=== PATIENT | female | born 1980 | race Caucasian/White ===

== ENCOUNTER 2025-03-01 23:34 | Emergency (ER) | payer OTHER ==
[~2025-03-01] VITALS: Ht 154.9 cm; Wt 67.3 kg
[2025-03-02] MEDS ORDERED: SUBO8MIS SL (00:27)
[2025-03-02] MEDS ORDERED: AMLO25TA PO (00:27)
[2025-03-02 00:34] LABS: BASO # 0.1 10^3/uL (0.0-0.2); BASO % 0.6 % (0.0-1.0); EOS # 0.1 10^3/uL (0.0-0.5); EOS % 1.8 % (0.0-3.0); LYMPH # 1.6 10^3/uL (1.5-5.0); LYMPH % 20.2 % (24.0-44.0); MONO # 0.5 10^3/uL (0.0-0.8); MONO % 5.9 % (2.0-8.0); NEUTROPHILS # 5.5 10^3/uL (1.5-8.5); NEUTROPHILS % 71.4 % (36.0-66.0); PLATELET COUNT, AUTOMATED 223 10^3/uL (150-450)
[2025-03-02 00:43] LABS: CK-MB VALUE MASS 9.4 NG/ML (<3.6); CPK CREATINE PHOSPHOKINASE 912 U/L (34-145); MB/CK RELATIVE INDEX 1.03 (< OR =4)
[2025-03-02] MEDS: NS (Normal Saline) 0.9% 1,000 ML IV ONE ×2 (01:38→03:20)
[2025-03-02 01:57] LABS: HCG, SERUM QUALITATIVE NEGATIVE (NEGATIVE)
[2025-03-02 02:00] LABS: ETHYL ALCOHOL (ETHANOL) 0.005 % (0.000-0.010)
[2025-03-02 02:01] LABS: SALICYLATE LEVEL < 3.0 MG/DL (<30)
[2025-03-02 02:06] LABS: ALT/SGPT 33 U/L (7.0-40); AST/SGOT 75 U/L (<34); CALCIUM LEVEL 9.2 MG/DL (8.5-10.1); CARBON DIOXIDE LEVEL 22 MMOL/L (20-31); CHLORIDE LEVEL 105 MMOL/L (98-107); CREATININE FOR GFR 0.81 MG/DL (0.55-1.30); GLOMERULAR FILTRATION RATE > 90.0 (>58); POTASSIUM SERUM 6.1 MMOL/L (3.5-5.1); SODIUM LEVEL 140 MMOL/L (136-145)
[2025-03-02 02:12] LABS: AMPHETAMINES LEVEL URINE NEGATIVE (NEGATIVE); BARBITURATES URINE NEGATIVE (NEGATIVE); BENZODIAZEPINES URINE NEGATIVE (NEGATIVE); CANNABINOIDS URINE POSITIVE (NEGATIVE); COCAINE METABOLITE URINE POSITIVE (NEGATIVE); METHADONE URINE NEGATIVE (NEGATIVE); OPIATES URINE NEGATIVE (NEGATIVE); PHENCYCLIDINE URINE NEGATIVE (NEGATIVE)
[2025-03-02 03:07] LABS: CK-MB VALUE MASS 7.6 NG/ML (<3.6); CPK CREATINE PHOSPHOKINASE 838.0 U/L (34-145); MB/CK RELATIVE INDEX 0.9 (< OR =4)
[2025-03-02 04:12] LABS: CK-MB VALUE MASS 7.6 NG/ML (<3.6); CPK CREATINE PHOSPHOKINASE 840.0 U/L (34-145); MB/CK RELATIVE INDEX 0.9 (< OR =4)
[2025-03-02 05:25] LABS: ALT/SGPT 18 U/L (7.0-40); AST/SGOT 28 U/L (<34)
[2025-03-02] MEDS ORDERED: TRAZ1TAB10 PO (07:38)
[2025-03-02] MEDS ORDERED: HOME MED LIST COMPLETE! XX SCH (07:40)
[2025-03-02 10:13] VITALS: BP 149/87; TEMP 98.1; O2SAT 98
== END 2025-03-02 10:35 | disposition home or self-care (01) ==
LOC: M ED 23:34
DX: F12.129 Cannabis abuse with intoxication, unspecified (principal); I10 Essential (primary) hypertension; Z87.442 Personal history of urinary calculi; F17.200 Nicotine dependence, unspecified, uncomplicated